=== PATIENT | male | born 1955 | race Caucasian/White ===

== ENCOUNTER 2017-04-06 17:14 | Emergency (ER) | payer OTHER ==
[~2017-04-06] VITALS: Ht 177.8 cm; Wt 80.3 kg
[2017-04-06 17:37] LABS: HEMATOCRIT 45.7 % (38.0-50.0); MCH 30.2 PG (29.0-34.0); MCV 86.2 FL (86-99); MEAN PLAT.VOLUME 9.5 uM^3 (9.0-12.4); PLATELET COUNT 161 K/uL (156-360); RBC DIS.WIDTH-CV 12.9 % (11.8-14.6); WHITE BLOOD COUNT 5.3 K/uL (4.1-10.2)
[2017-04-06 17:45] LABS: CHLORIDE 100 mEq/L (99-109); SODIUM 137 mEq/L (136-147)
[2017-04-06 17:47] LABS: GLUCOSE 90 mg/dL (70-99)
[2017-04-06 17:48] LABS: ANION GAP 11 MEQ/L (2-14)
[2017-04-06 17:50] LABS: GFR ESTIMATE (CALCULATED) 47 mL/min/
[2017-04-06 17:51] LABS: UREA NITROGEN (BUN) 14 mg/dL (9-23)
[2017-04-06 17:57] LABS: TROP-I INTERPRETATION NEGATIVE; TROPONIN-I < 0.01 ng/mL (0.0-0.30)
[2017-04-06] MEDS ORDERED: VALTREX1000 MG PO (18:47)
[2017-04-06] MEDS ORDERED: NORCO 5/3251 TABLET PO (18:47)
[2017-04-06 19:05] VITALS: BP 162/79
== END 2017-04-06 19:05 | disposition home or self-care (01) ==
LOC: EME 17:14
DX: B02.9 Zoster without complications (principal); F17.200 Nicotine dependence, unspecified, uncomplicated
CPT/HCPCS: 71020; 80048; 84484; 85027; 93005; 99281; 99284

== ENCOUNTER 2018-06-10 11:43 | Emergency (ER) | payer OTHER ==
[~2018-06-10] VITALS: Ht 177.8 cm; Wt 79.1 kg
[~2018-06-10 11:43] MED LIST: NORCO 5/3251 TABLET PO; VALTREX1000 MG PO
[2018-06-10 12:24] LABS: BASOPHIL (%) 0.7 % (0-1); EOSINOPHIL (%) 2.3 % (0-5); EOSINOPHIL COUNT 0.1 K/uL (0-0.3); HEMOGLOBIN 17.2 G/DL (12.5-16.6); IMMATURE GRANULOCYTE (%) 0.2 % (0.0-0.7); LYMPHOCYTE (%) 28.7 % (15-42); LYMPHOCYTE COUNT 1.3 K/uL (1.0-2.8); MCH 30.2 PG (29.0-34.0); MCHC 35.1 G/DL (30.0-36.0); MCV 86.1 FL (86-99); MONOCYTE (%) 5.2 % (3-12); MONOCYTE COUNT 0.2 K/uL (0-0.8); NEUTROPHIL (%) 62.9 % (45-76); NEUTROPHIL COUNT 2.8 K/uL (1.8-6.4); PLATELET COUNT 175 K/uL (156-360); RBC DIS.WIDTH-CV 12.8 % (11.8-14.6); RBC DIS.WIDTH-SD 39.8 % (39-53); RED BLOOD COUNT 5.69 M/uL (4.00-5.50); WHITE BLOOD COUNT 4.4 K/uL (4.1-10.2)
[2018-06-10 12:27] LABS: PTT 28.7 SEC (25-37)
[2018-06-10 12:28] LABS: ALBUMIN 4.3 g/dL (3.2-4.8); CHLORIDE 101 mEq/L (99-109); POTASSIUM 4.5 mEq/L (3.7-5.4); SODIUM 136 mEq/L (136-147)
[2018-06-10 12:29] LABS: AMYLASE 51 IU/L (1-118)
[2018-06-10 12:31] LABS: GLUCOSE 136 mg/dL (70-99); TOTAL PROTEIN 8.4 g/dL (6.4-8.3)
[2018-06-10 12:32] LABS: TOTAL BILIRUBIN 0.6 mg/dL (0.0-1.0)
[2018-06-10 12:33] LABS: SERUM ETHYL ALCOHOL < 10 mg/dL
[2018-06-10 12:34] LABS: ALKALINE PHOSPHATASE 53 IU/L (3-129); CREATININE 1.3 mg/dL (0.6-1.3); GFR ESTIMATE (CALCULATED) > 59 mL/min/ (58.99-99999)
[2018-06-10 12:35] LABS: UREA NITROGEN (BUN) 13 mg/dL (9-23)
[2018-06-10 12:36] LABS: AST (GOT) 26 IU/L (2-34); TROP-I INTERPRETATION NEGATIVE; TROPONIN-I < 0.01 ng/mL (0.0-0.30)
[2018-06-10 12:37] LABS: ALT (GPT) 27 IU/L (3-49)
[2018-06-10] MEDS ORDERED: PREDNISONE20 MG PO (13:46)
[2018-06-10] MEDS ORDERED: VALTREX1000 MG PO (13:46)
[2018-06-10 14:30] VITALS: BP 148/87
[2018-06-10 16:02] LABS: HDL CHOLESTEROL 31 MG/DL (Desirable>=40); LDL CHOLESTEROL 106 mg/dL (Desirable<100); NON-HDL CHOLESTEROL 130 mg/dL (Desirable<160); TOTAL CHOLESTEROL 161 mg/dL (Desirable<200); TRIGLYCERIDES 121 MG/DL (Normal: <150)
[2018-06-10 17:11] LABS: LIPASE 30 U/L (1.0-51.0)
[2018-06-11 06:53] LABS: HEMOGLOBIN A1c (GLYCOHEMOGLOB) 5.6 % (Below 5.7)
[2018-06-11 10:26] LABS: LYME DISEASE SEROLOGY SCREEN NEGATIVE (NEGATIVE)
== END 2018-06-10 14:32 | disposition home or self-care (01) ==
LOC: EME 11:43
PROVIDERS: Emergency Medicine
DX: G51.0 Bell's palsy (principal); K21.9 Gastro-esophageal reflux disease without esophagitis; F17.200 Nicotine dependence, unspecified, uncomplicated
CPT/HCPCS: 70450; 70551; 71045; 80053; 80061; 81003; 82150; 83036; 83690; 84484; 85025; 85610; 85730; 86618; 86850; 86900; 86901; 93005; 99281; 99285; G0480; J7512